=== PATIENT | female | born 1985 | race Caucasian/White ===

== ENCOUNTER → 2019-09-01 | Outpatient (CLI) | payer OTHER ==
[2019-09-01 08:09] LABS: ALBUMIN 4.1 g/dL (3.4-5.0); ANION GAP 5 mmol/L (5-15); BASOPHILS # (AUTO) 0.02 x10^3/uL (0-0.1); BASOPHILS % (AUTO) 0 % (0-1); CHLORIDE 109 mmol/L (98-107); EOSINOPHILS # (AUTO) 0.05 x10^3/uL (0-0.4); EOSINOPHILS % (AUTO) 1 % (1-7); LYMPHOCYTES % (AUTO) 26 % (22-44); MD NO; MEAN CORPUSCULAR HEMOGLOBIN 32.4 pg (27.0-34.8); MEAN CORPUSCULAR HGB CONC 33.8 g/dL (32.4-35.8); MEAN CORPUSCULAR VOLUME 96.1 fL (80-100); MEAN PLATELET VOLUME 8.8 fL (7.4-10.4); MONOCYTES # (AUTO) 0.57 x10^3/uL (0.2-0.8); MONOCYTES % (AUTO) 10 % (2-9); NEUTROPHILS # (AUTO) 3.64 x10^3/uL (1.8-6.8); NEUTROPHILS % (AUTO) 63 % (42-75); PLATELET COUNT 217 x10^3/uL (130-400); RED BLOOD COUNT 4.63 x10^6/uL (3.82-5.3); RED CELL DISTRIBUTION WIDTH 12.5 % (9.6-15.2)
[2019-09-01 08:20] LABS: ALANINE AMINOTRANSFERASE 22 U/L (12-78); ALKALINE PHOSPHATASE 53 U/L (45-117); BILIRUBIN,TOTAL 2.5 mg/dL (0.2-1.0); CHOL/HDL RATIO 2.8; CHOLESTEROL, TOTAL 176 mg/dL (140-239); CREATININE 0.86 mg/dL (0.55-1.02); HDL CHOL % 35 % (28-40); HDL CHOLESTEROL (DIRECT) 62 mg/dL (40-60); LDL CHOLESTEROL,CALCULATED 88 mg/dL (54-169); LDL/HDL RATIO 1.4 (0.5-3.0); TOTAL PROTEIN 8.2 g/dL (6.4-8.2); TRIGLYCERIDES 128 mg/dL (50-200); VLDL CHOLESTEROL 26 mg/dL (0-25)
== END | disposition home or self-care (01) ==
LOC: CFH 06:59
PROVIDERS: ATTEND Nurse Practitioner Family
DX: Z12.31 Encounter for screening mammogram for malignant neoplasm of breast (principal); Z00.00 Encounter for general adult medical examination without abnormal findings; N64.89 Other specified disorders of breast; E04.1 Nontoxic single thyroid nodule; G43.109 Migraine with aura, not intractable, without status migrainosus; I34.0 Nonrheumatic mitral (valve) insufficiency; Z80.3 Family history of malignant neoplasm of breast
CPT/HCPCS: 36415; 77067; 80053; 80061; 84443; 85025

== ENCOUNTER 2019-09-18 14:43 | Emergency (ER) | payer OTHER ==
[~2019-09-18] VITALS: Ht 172.7 cm; Wt 59.9 kg
--- NOTE | 2019-09-18 16:54 | NUR ---
Pt to room from [facility], ambulatory with steady gait.
[2019-09-18 17:09] LABS: BASOPHILS % (AUTO) 0 % (0-1); EOSINOPHILS # (AUTO) 0.03 x10^3/uL (0-0.4); EOSINOPHILS % (AUTO) 1 % (1-7); LYMPHOCYTES # (AUTO) 1.03 x10^3/uL (1-3.4); LYMPHOCYTES % (AUTO) 20 % (22-44); MD NO; MEAN CORPUSCULAR HEMOGLOBIN 32.4 pg (27.0-34.8); MEAN CORPUSCULAR HGB CONC 33.7 g/dL (32.4-35.8); MEAN CORPUSCULAR VOLUME 96.1 fL (80-100); MEAN PLATELET VOLUME 8.9 fL (7.4-10.4); MONOCYTES # (AUTO) 0.58 x10^3/uL (0.2-0.8); MONOCYTES % (AUTO) 11 % (2-9); NEUTROPHILS # (AUTO) 3.61 x10^3/uL (1.8-6.8); NEUTROPHILS % (AUTO) 69 % (42-75); PLATELET COUNT 223 x10^3/uL (130-400); RED BLOOD COUNT 5.12 x10^6/uL (3.82-5.3); RED CELL DISTRIBUTION WIDTH 12.4 % (9.6-15.2)
[2019-09-18 17:13] LABS: ALANINE AMINOTRANSFERASE 20 U/L (12-78); ALBUMIN 4.5 g/dL (3.4-5.0); ANION GAP 6 mmol/L (5-15); CALCIUM 9.3 mg/dL (8.5-10.1); CHLORIDE 105 mmol/L (98-107)
[2019-09-18 17:18] LABS: ALKALINE PHOSPHATASE 65 U/L (45-117); BILIRUBIN,TOTAL 0.7 mg/dL (0.2-1.0); CREATININE 0.87 mg/dL (0.55-1.02); TOTAL PROTEIN 8.8 g/dL (6.4-8.2); TROPONIN I < 0.015 ng/mL (0.000-0.045)
--- NOTE | 2019-09-18 17:47 | NUR ---
PT RESTING IN [facility], ON MONITOR WITH FRIEND AT BEDSIDE. ADDITIONAL IMAGING ORDERED.
--- NOTE | 2019-09-18 18:18 | NUR ---
PT TO MRI
--- NOTE | 2019-09-18 18:51 | NUR ---
AT BEDSIDE FOR RECHECK
[2019-09-18] MEDS ORDERED: KETOROLAC 30 MG/1 ML IM ONE (19:00)
[2019-09-18] MEDS ORDERED: KETOROLAC 30 MG/1 ML ONE (19:23)
[2019-09-18 19:54] VITALS: BP 127/83
== END 2019-09-18 19:56 | disposition home or self-care (01) ==
LOC: ED 18:30
DX: R07.89 Other chest pain (principal); I10 Essential (primary) hypertension; R51 Headache
CPT/HCPCS: 36415; 70551; 71046; 80053; 83735; 84484; 85025; 85379; 93005; 96372; 99284; J1885

== ENCOUNTER 2019-09-21 15:49 | Outpatient (CLI) | payer OTHER | END 2019-09-21 23:59 | disposition home or self-care (01) | LOC: CVU 15:49 | PROVIDERS: ATTEND Internal Medicine Cardiovascular Disease | DX: I10 Essential (primary) hypertension (principal); R94.31 Abnormal electrocardiogram [ECG] [EKG] | CPT/HCPCS: 93306; 93975 ==